=== PATIENT | male | born 1975 | race Caucasian/White ===

== ENCOUNTER 2016-04-08 05:04 | Emergency (ER) | payer OTHER ==
[~2016-04-08 05:04] MED LIST: DICLOFENAC SODI75 M2 PO; GABAPENTIN300 M2 PO; KETOROLAC TROME10 M1 PO; QVAR8.7 G1; VICODIN 5-3001 EACH PO
[2016-04-08 05:11] VITALS: BP 127/90
--- NOTE | 2016-04-08 05:22 | ED INFLUENZA/URI COMPLAINT ---
History of Present Illness General Chief Complaint: Upper Respiratory Sx/Fever Stated Complaint: COUGH, CONGESTIONS,SORE THROAT Source: patient Exam Limitations: no limitations Vital Signs & Intake/Output Vital Signs & Intake/Output Vital Signs Date Time Temp Pulse Resp B/P Pulse O2 O2 Flow FiO2 Ox Delivery Rate 04/08 0511 98.3 76 18 127/90 97 Room Air Allergies Coded Allergies: NO KNOWN ALLERGIES (11/01/15) Reconcile Medications Amoxicillin/Potassium Clav (Augmentin 875-125 Tablet) 875 MG-125 MG TABLET 1 TAB PO BID SINUSITIS Beclomethasone Dipropionate (QVAR) 8.7 GM AER.W.ADAP 1 PUFF ASHMA (Reported) Diclofenac Sodium 75 MG TABLET.DR 1 TAB PO ARTHRITIS (Reported) Gabapentin 300 MG CAPSULE 1 CAP PO NEURO (Reported) Hydrocodone/Acetaminophen (Vicodin 5-300 MG Tablet) 1 EACH TABLET 1 TAB PO Q6 PRN PAIN Ketorolac Tromethamine 10 MG TABLET 1 TAB PO TID PRN PAIN Triage Note: SORE THROAT,CONGESTION,COUGH FOR 1 WEEK Triage Nurses Notes Reviewed? yes Onset: Gradual Duration: week(s):, waxing and waning Timing: recent history Severity: mild Prior Episodes/Possible Cause: occassional episodes Modifying Factors: Improves With: rest. Associated Symptoms: cough, nasal congestion, nasal drainage, sinus infection, sore throat HPI: 40-year-old gentleman presents with more than 7 days of cough runny nose sinus congestion. He states that, "in the beginning I had clear nasal discharge and I didn't feel too bad. But then everything got worse and now I have a lot more gross yellow discharge coming out of my nose." He does not recall a fever, dyspnea, wheezing, abdominal pain. He is otherwise well and notes no other medical problems. Past History Travel History Traveled to [place] past 21 day No Medical History Any Pertinent Medical History? see below for history Neurological: restless leg syndrome EENT: NONE Cardiovascular: NONE Respiratory: NONE Gastrointestinal: NONE Hepatic: NONE Renal: NONE Musculoskeletal: ARTHRITIS IN KNEES Psychiatric: NONE Endocrine: NONE Blood Disorders: NONE Cancer(s): NONE Surgical History Surgical History: non-contributory Psychosocial History What is your primary language Scottish Tobacco Use: Never used Family History Hx Contributory? No Review of Systems Review of Systems Constitutional: Reports: no symptoms. EENTM: Reports: no symptoms. Respiratory: Reports: no symptoms. Cardiovascular: Reports: no symptoms. GI: Reports: no symptoms. Genitourinary: Reports: no symptoms. Musculoskeletal: Reports: no symptoms. Skin: Reports: no symptoms. Neurological/Psychological: Reports: no symptoms. Hematologic/Endocrine: Reports: no symptoms. Immunologic/Allergic: Reports: no symptoms. All Other Systems: Reviewed and Negative Physical Exam Physical Exam General Appearance: well developed/nourished, mild distress Head: atraumatic, normal appearance Eyes: Bilateral: normal appearance. Ears, Nose, Throat: nasal congestion, nasal drainage, pharyngeal erythema Neck: normal inspection, supple, full range of motion Respiratory: normal breath sounds, chest non-tender, no respiratory distress Cardiovascular: regular rate/rhythm Gastrointestinal: normal bowel sounds, soft, non-tender Back: normal inspection, normal range of motion Extremities: normal inspection, normal capillary refill, normal range of motion Neurologic/Psych: no motor/sensory deficits, awake, alert, oriented x 3 Skin: intact, normal color, warm/dry Core Measures Severe Sepsis Present: No Septic Shock Present: No Progress Differential Diagnosis: otitis, pharyngitis, sinusitis Plan of Care: Well-appearing in ED. Given the duration of his symptoms and the worsening of his discharge from his nose, I will treat him with Augmentin. Close follow-up advised. Initial ED EKG: none Departure Departure Disposition: HOME OR SELF CARE Condition: Stable Clinical Impression Primary Impression: Sinusitis Referrals: WALLY OLMEDO,LISETH Lowery (PCP/Family) Departure Forms: Customer Survey General Discharge Information Prescriptions: Current Visit Scripts Amoxicillin/Potassium Clav (Augmentin 875-125 Tablet) 1 TAB PO BID #20 TAB
[2016-04-08] MEDS ORDERED: AUGMENTIN 875-1 EACH PO (05:25)
== END 2016-04-08 05:32 ==
LOC: ERH 05:04
DX: J32.9 Chronic sinusitis, unspecified (principal)

== ENCOUNTER 2017-04-03 22:00 | Emergency (ER) | payer OTHER ==
[~2017-04-03 22:00] MED LIST changes: +AUGMENTIN 875-1 EACH PO
[2017-04-04] MEDS ORDERED: AMOXICILLIN875 M1 PO (02:17)
[2017-04-04] MEDS ORDERED: PREDNISONE20 M1 PO (02:17)
--- NOTE | 2017-04-04 02:18 | ED INFLUENZA/URI COMPLAINT ---
History of Present Illness General Chief Complaint: General Adult Stated Complaint: PT IS HAVING A REACTION TO RX Source: patient, old records Exam Limitations: no limitations Vital Signs & Intake/Output Vital Signs & Intake/Output Vital Signs Date Time Temp Pulse Resp B/P B/P Pulse O2 O2 Flow FiO2 Mean Ox Delivery Rate 04/04 0228 98.8 77 18 132/98 98 Room Air 04/04 0134 97.8 04/04 0024 98 Room Air 04/04 0016 97.8 77 18 136/108 98 Room Air 04/03 2216 98.2 87 22 150/100 98 ED Intake and Output 04/04 0000 04/03 1200 Intake Total Output Total Balance Patient 165 lb Weight Allergies Coded Allergies: NO KNOWN ALLERGIES (11/01/15) Reconcile Medications Amoxicillin 875 MG TABLET 1 TAB PO BID sinusitis Amoxicillin/Potassium Clav (Augmentin 875-125 Tablet) 875 MG-125 MG TABLET 1 TAB PO BID SINUSITIS Beclomethasone Dipropionate (QVAR) 8.7 GM AER.W.ADAP 1 PUFF ASHMA (Reported) Diclofenac Sodium 75 MG TABLET.DR 1 TAB PO ARTHRITIS (Reported) Gabapentin 300 MG CAPSULE 1 CAP PO NEURO (Reported) Hydrocodone/Acetaminophen (Vicodin 5-300 MG Tablet) 1 EACH TABLET 1 TAB PO Q6 PRN PAIN Ketorolac Tromethamine 10 MG TABLET 1 TAB PO TID PRN PAIN Prednisone 20 MG TABLET 1 TAB PO BID pharyngitis Triage Note: PER PT FEELS LIKE MY THROAT IS SWELLING CO BURNING TO THROAT AFTER STARTING MOTRIN FLONASE AND TESSALON PERLES FOR "COLD YESTERDAY TOOK MOTRIN AT 5 AND OTHER 2 AT 6 SYMPTOMS STARTED AT 8PM NO RESP DISTRESS NO STRIDOR Triage Nurses Notes Reviewed? yes Onset: yesterday Duration: hour(s):, constant, continues in ED Timing: recent history Severity: moderate Prior Episodes/Possible Cause: illness exposure No Modifying Factors: none Associated Symptoms: cough, earache, facial pain, fever/chills, muscle aches, nasal congestion, shortness of breath HPI: 1 day prior to admission patient complains of fever congestion prescribed Flonase ibuprofen antihistamine. Shortly after taking these medications he complained of sore throat difficulty swallowing shortness of breath patient pain and swelling muscle aches and numbness. He denies chest pain cough nausea vomiting diarrhea abdominal pain dysuria rash bleeding headache. Past History Travel History Traveled to [place] past 21 day No Medical History Any Pertinent Medical History? see below for history Neurological: restless leg syndrome EENT: NONE Cardiovascular: NONE Respiratory: NONE Gastrointestinal: NONE Hepatic: NONE Renal: NONE Musculoskeletal: ARTHRITIS IN KNEES Psychiatric: NONE Endocrine: NONE Blood Disorders: NONE Cancer(s): NONE Surgical History Surgical History: non-contributory Psychosocial History What is your primary language Ugandan Tobacco Use: Never used Family History Hx Contributory? No Review of Systems Review of Systems Constitutional: Reports: see HPI, fever, malaise. EENTM: Reports: see HPI, nasal congestion, throat pain. Respiratory: Reports: see HPI, short of breath. Cardiovascular: Reports: no symptoms. GI: Reports: no symptoms. Genitourinary: Reports: no symptoms. Musculoskeletal: Reports: see HPI, joint pain, muscle pain. Skin: Reports: no symptoms. Neurological/Psychological: Reports: see HPI, numbness. Hematologic/Endocrine: Reports: no symptoms. Immunologic/Allergic: Reports: no symptoms. All Other Systems: Reviewed and Negative Physical Exam Physical Exam General Appearance: well developed/nourished, alert, awake, moderate distress, obese Head: atraumatic, normal appearance, tenderness (sinus frontal) Eyes: Bilateral: normal appearance, PERRL, EOMI. Ears, Nose, Throat: moist mucous membrane, nasal congestion, pharyngeal erythema Neck: normal inspection, supple, full range of motion, trachea midline, lymphadenopathy (R), lymphadenopathy (L) Respiratory: normal breath sounds, chest non-tender, no respiratory distress, quiet respiration, lungs clear Cardiovascular: regular rate/rhythm, normal peripheral pulses, norml femoral pulses equa Peripheral Pulses: 4+ carotid (R), 4+ carotid (L) Gastrointestinal: normal bowel sounds, soft, non-tender, no organomegaly Back: normal inspection, normal range of motion Extremities: normal capillary refill, normal range of motion, no edema Neurologic/Psych: no motor/sensory deficits, awake, alert, oriented x 3, normal gait, normal mood/affect, cage supervisor II-XII nml as tested Reflexes: 2+: bicep (R), bicep (L). Skin: intact, normal color, warm/dry Lymphatic: no anterior cervical tracee Core Measures Sepsis Present: No Sepsis Focused Exam Completed? No Progress Differential Diagnosis: influenza, otitis, pharyngitis, sinusitis Plan of Care: Orders Procedure Date/time Status RAPID VIRAL INFLUENZA A 04/03 2353 Complete THROAT CULTURE W/QUICK STREP 04/03 2353 Active Microbiology 04/04 0017 NASOPHARYN: Influenza Virus A & B Rapid Smear - COMP Initial ED EKG: none Departure Departure Time of Disposition: 214 Disposition: HOME OR SELF CARE Condition: Stable Clinical Impression Primary Impression: Sinusitis Secondary Impressions: Pharyngitis Referrals: Ric OLMEDO,Nawaf Lowery (PCP/Family) Departure Forms: Customer Survey General Discharge Information Prescriptions: Current Visit Scripts Amoxicillin 1 TAB PO BID #20 TAB Prednisone 1 TAB PO BID #10 TAB
[2017-04-04 02:28] VITALS: BP 132/98
== END 2017-04-04 02:30 ==
LOC: ERH 22:00
DX: J32.9 Chronic sinusitis, unspecified (principal); J02.9 Acute pharyngitis, unspecified
CPT/HCPCS: 87804; 87804-59

== ENCOUNTER 2017-06-15 19:39 | Emergency (ER) | payer OTHER ==
[~2017-06-15] VITALS: Ht 157.5 cm; Wt 77.6 kg
[~2017-06-15 19:39] MED LIST changes: +AMOXICILLIN875 M1 PO; +PREDNISONE20 M1 PO
[2017-06-15] MEDS ORDERED: PROAIR HFA8.5 GM INH (19:50)
[2017-06-15] MEDS ORDERED: CODEINE-GUAIFE120 M1 (19:50)
[2017-06-15 20:07] LABS: ABSOLUTE BASOPHIL COUNT 0 /CUMM (0.0-0.2); ABSOLUTE EOSINOPHIL COUNT 0 /CUMM (0.0-0.7); ABSOLUTE GRANULOCYTE CT 11.8 /CUMM (1.4-6.5); ABSOLUTE LYMPH COUNT 1.3 /CUMM (1.2-3.4); ABSOLUTE MONOCYTE COUNT 0.5 /CUMM (0.10-0.60); BASOPHIL % 0 % (0.0-2.0); EOSINOPHIL % 0 % (0-5); MEAN CORPUSCULAR HGB CONC 33.3 G/DL (33.0-37.0); MEAN CORPUSCULAR VOLUME 87.3 FL (80.0-94.0); MEAN PLATELET VOLUME 7.3 FL (7.4-10.4); PLATELET COUNT 312 /CUMM (130-400); RBC DISTRIBUTION WIDTH 13.3 % (11.5-14.5); RED BLOOD CELL CT 5.28 /CUMM (4.70-6.10); WHITE BLOOD CELL COUNT 13.6 /CUMM (4.8-10.8)
[2017-06-15 20:10] LABS: GRANULOCYTE % 86.8 % (42.2-75.2)
[2017-06-15 20:17] LABS: PT 10.7 SEC (9.4-12.5); PTT 23 SEC (25-37)
--- NOTE | 2017-06-15 20:38 | ED CARDIAC/CP/PALPITATIONS ---
History of Present Illness General Chief Complaint: Chest Pain Stated Complaint: SHORTNESS OF BREATH, CHEST PAIN Source: patient, family Exam Limitations: no limitations Vital Signs & Intake/Output Vital Signs & Intake/Output Vital Signs Date Time Temp Pulse Resp B/P B/P Pulse O2 O2 Flow FiO2 Mean Ox Delivery Rate 06/157 97.5 77 18 119/81 96 Room Air 06/15 2310 Room Air 06/15 2250 97.9 79 18 118/72 95 Room Air 06/15 2126 96 06/15 1947 97.8 86 20 122/83 97 Room Air ED Intake and Output 06/16 0000 06/15 1200 Intake Total 240 Output Total Balance 240 Intake, Oral 240 Patient 171 lb Weight Allergies Coded Allergies: NO KNOWN ALLERGIES (11/01/15) Reconcile Medications Albuterol Sulfate (Proair Hfa) 90 MCG HFA.AER.AD 2 PUF INH Q4-6 PRN PRN BRONCHITIS (Reported) Codeine Phosphate/Guaifenesi (Codeine-Guaifen 10-100 MG/5 Ml) 10 MG-100 MG/5 ML LIQUID COUGH (Reported) Prednisone 20 MG TABLET 1 TAB PO BID pharyngitis Triage Note: PT TO TRIAGE C/O CHEST TIGHTNESS, DRY COUGH AND DIFFICULTY TAKING DEEP BREATHS. PER PT HAD SINUS SURGERY 05/29 AND IS CURRENTLY BEING TX FOR BRONCHITIS. 02 SAT 97% IN TRIAGE. SPEAKING IN CLEAR SENTENCES. Triage Nurses Notes Reviewed? yes Onset: Gradual Duration: week(s): Timing: recent history Quality/Severity: mild, moderate Radiation: no radiation Activities at Onset: s/p sinoplasty Nitro Today/Relief: no nitro taken today Aspirin Today: no aspirin today HPI: 41yo gentleman h/o sinus problems, s/p balloon sino-plasty 3 weeks ago, presents with 2.5 weeks of cough, runny nose, dyspnea. He has completed a course of antibiotics and 2 courses of oral steroids without effect. Inhalers have limited effect. A few days ago, he developed tightness in his chest, worse with coughing and with post-nasal drip. He has tried several other medications - zyrtec, benadryl, guiafenesin, codeine - without effect. Past History Travel History Traveled to [place] past 21 day No Medical History Any Pertinent Medical History? see below for history Neurological: restless leg syndrome EENT: NONE Cardiovascular: NONE Respiratory: NONE Gastrointestinal: NONE Hepatic: NONE Renal: NONE Musculoskeletal: ARTHRITIS IN KNEES Psychiatric: NONE Endocrine: NONE Blood Disorders: NONE Cancer(s): NONE Surgical History Surgical History: non-contributory Psychosocial History What is your primary language Martiniquais Tobacco Use: Never used Family History Hx Contributory? No Review of Systems Review of Systems Constitutional: Reports: no symptoms. EENTM: Reports: no symptoms. Respiratory: Reports: no symptoms. Cardiovascular: Reports: no symptoms. GI: Reports: no symptoms. Genitourinary: Reports: no symptoms. Musculoskeletal: Reports: no symptoms. Skin: Reports: no symptoms. Neurological/Psychological: Reports: no symptoms. Hematologic/Endocrine: Reports: no symptoms. Immunologic/Allergic: Reports: no symptoms. All Other Systems: Reviewed and Negative Physical Exam Physical Exam General Appearance: well developed/nourished, no apparent distress Head: atraumatic, normal appearance Eyes: Bilateral: normal appearance. Ears, Nose, Throat: normal pharynx, normal ENT inspection Neck: normal inspection, supple, full range of motion Respiratory: normal breath sounds, chest non-tender, no respiratory distress, quiet respiration, lungs clear Cardiovascular: regular rate/rhythm Gastrointestinal: normal bowel sounds, soft, non-tender, no organomegaly Back: normal inspection, normal range of motion Extremities: normal inspection, normal capillary refill, normal range of motion, no edema Neurologic/Psych: no motor/sensory deficits, awake, alert, oriented x 3 Skin: intact, normal color, warm/dry Core Measures ACS in differential dx? No CVA/TIA Diagnosis No Sepsis Present: No Sepsis Focused Exam Completed? No Progress Differential Diagnosis: costochondritis, cough-variant asthma vs other. Plan of Care: Orders Procedure Date/time Status TROPONIN LEVEL 06/15 2229 Complete EKG 06/15 2229 Active PARTIAL THROMBOPLASTIN TIME 06/16 1951 Complete TROPONIN LEVEL 06/15 1940 Complete PROTHROMBIN TIME 06/15 1940 Complete D-DIMER 06/15 1940 Complete COMPREHENSIVE METABOLIC PANEL 06/15 1940 Complete CBC WITHOUT DIFFERENTIAL 06/15 1940 Complete EKG 06/16 1939 Active Laboratory Tests 06/15/172238: Troponin I < 0.01 06/15/171951: Anion Gap 12, Estimated GFR > 60, BUN/Creatinine Ratio 25.5 H, Glucose 115 H, Calcium 9.4, Total Bilirubin 0.5, AST 16 L, ALT 29, Alkaline Phosphatase 61, Troponin I < 0.01, Total Protein 7.3, Albumin 4.2, Globulin 3.1, Albumin/ Globulin Ratio 1.4, PT 10.7, INR 0.98, APTT 23 L, D-Dimer High Sensitivty < 200 , CBC w Diff NO MAN DIFF REQ, RBC 5.28, MCV 87.3, MCH 29.0, MCHC 33.3, RDW 13.3, MPV 7.3 L, Gran % 86.8 H, Lymphocytes % 9.6 L, Monocytes % 3.6, Eosinophils % 0, Basophils % 0, Absolute Granulocytes 11.8 H, Absolute Lymphocytes 1.3, Absolute Monocytes 0.5, Absolute Eosinophils 0, Absolute Basophils 0 06/15/171947: APTT Cancelled Diagnostic Imaging: Viewed by Me: Radiology Read. Discussed w/RAD: Radiology Read. Initial ED EKG: nsr, with acute changes. Repeat EKG: unchanged Departure Departure Disposition: HOME OR SELF CARE Condition: Stable Clinical Impression Primary Impression: Rhinitis Secondary Impressions: Chest pain Referrals: Ric OLMEDO,Nawaf Lowery (PCP/Family) Departure Forms: Customer Survey General Discharge Information Comments 06/15/17, 5722... pt stable in ED... trop/ekg benign x 2... labs cxr benign... pt safe for discharge with close follow up with cards/ent/pmd. Critical Care Note Critical Care Note Critical Care Time: non-applicable
--- NOTE | 2017-06-15 22:17 | RADIOLOGY REPORT ---
EXAMINATION: XR PORTABLE CHEST CLINICAL INFORMATION: Chest pain COMPARISON: None TECHNIQUE: Portable frontal view of the chest was obtained. FINDINGS: No significant abnormality is noted involving the heart, lungs, mediastinum, bony thorax or soft tissues. IMPRESSION: Unremarkable examination.
[2017-06-15 23:37] VITALS: BP 119/81
== END 2017-06-15 23:38 ==
LOC: ERH 19:39
PROVIDERS: Physician Assistant Medical
DX: J31.0 Chronic rhinitis (principal); R07.89 Other chest pain
CPT/HCPCS: 1263; 71045; 93005; 93010